=== PATIENT | female | born 1955 | race Caucasian/White ===

== ENCOUNTER 2025-03-02 20:24 | Inpatient (IN) | payer MEDICAID ==
[~2025-03-02] VITALS: Ht 170.2 cm; Wt 83.9 kg
[2025-03-02] MEDS ORDERED: VANCOMYCIN 1G PREMIX 200 ML IV ONE (21:00)
[2025-03-02] MEDS: PIPERACILLIN/TAZO 3.375G/50ML 50 ML IV ONE (21:11)
[2025-03-02] MEDS: SODIUM CHLORIDE 0.9% (SEPSIS BOLUS) IV ONE (21:11)
[2025-03-02] MEDS: ACETAMINOPHEN 325MG TABLET PO ONE (21:15)
[2025-03-02 21:31] LABS: HEMATOCRIT. 33.1 % (36.0-48.0); MEAN CORPUSCULAR HEMOGLOBIN 27.7 pg (28.0-32.0); MEAN CORPUSCULAR HGB CONC 33.2 g/dL (31.0-37.0); MEAN CORPUSCULAR VOLUME 83.4 fL (81.0-99.0); PLATELET 373 x1000/uL (130-400); RED BLOOD CELL COUNT 3.97 mill/uL (4.2-5.4); RED CELL DISTRIBUTION WIDTH 15.9 % (11.6-14.6); WHITE BLOOD COUNT 16.2 x1000/uL (4.5-11.0)
[2025-03-02 21:33] LABS: DIFFERENTIAL COMMENT 1
[2025-03-02 21:35] LABS: CHLORIDE 101 mEq/L (98-107); POTASSIUM 4.1 mEq/L (3.5-5.1); SODIUM 135 mEq/L (136-145)
[2025-03-02 21:36] LABS: CALCIUM 8.7 mg/dL (8.7-10.4); CARBON DIOXIDE 22 mEq/L (21-32)
[2025-03-02 21:37] LABS: PROTHROMBIN TIME 10.9 sec (9.6-11.0)
[2025-03-02 21:41] LABS: CREATININE 1.6 mg/dL (0.6-1.0); GLUCOSE 324 mg/dL (70-105); UREA NITROGEN BLOOD 39 mg/dL (9-23)
[2025-03-02 21:43] LABS: ALANINE AMINOTRANSFERASE 12 IU/L (10-49); ALBUMIN 4.1 g/dL (3.2-4.8); ASPARTATE AMINOTRANSFERASE 13 IU/L (<34); BILIRUBIN DIRECT 0.3 mg/dL (<=3.0); BILIRUBIN TOTAL 0.8 mg/dL (0.1-1.0); PROTEIN TOTAL 7.1 g/dL (6.0-8.3)
[2025-03-02 21:54] LABS: LACTIC ACID 3.2 mmol/L (0.4-2.0); TROPONIN I HIGH SENSITIVITY 86 ng/L (3.0-34)
[2025-03-02 21:57] LABS: PLATELET ESTIMATE NORMAL
[2025-03-02 23:58] VITALS: BP 86/35; PULSE 94; RESP 18; TEMP 36.1; O2SAT 98
[2025-03-02 23:58] LABS: CLARITY URINE CLEAR (CLEAR); COLOR URINE YELLOW (YELLOW); GLUCOSE URINE 3+ (NEGATIVE); KETONES URINE NEGATIVE (NEGATIVE); LEUKOCYTE ESTERASE URINE 2+ (NEGATIVE); NITRITE URINE NEGATIVE (NEGATIVE); OCCULT BLOOD URINE 2+ (NEGATIVE); PH URINE 5.5 (4.5-8.0); PROTEIN URINE 1+ (NEGATIVE); SPECIFIC GRAVITY URINE 1.023 (1.005-1.030); UROBILINOGEN URINE 0.2 E.U./dL (0.2-1.0)
[2025-03-03 00:32] LABS: SQUAMOUS EPITHELIAL CELL URINE 1+ /lpf (RARE/1+)
[2025-03-03 00:33] LABS: WBC URINE 50-100 /hpf (0-2)
[2025-03-03 00:34] LABS: BACTERIA URINE TRACE; YEAST URINE 1+
[2025-03-03] MEDS ORDERED: DEXTROSE 50% WATER 50ML SYRINGE IV PRN (01:15)
[2025-03-03] MEDS: SODIUM CHLORIDE 0.9% 1,000 ML IV SCH (01:30)
[2025-03-03 02:43] VITALS: BP 86/35; PULSE 94; RESP 18; TEMP 36.2
[2025-03-03] MEDS: PIPERACILLIN/TAZO 3.375G/50ML 50 ML IV SCH (06:39)
[2025-03-03] MEDS: BLOOD SUGAR DIAGNOSTIC STRIP TEST SCH (07:10)
[2025-03-03] MEDS: INSULIN LISPRO 100 UNITS/ML SUBCUT SCH (07:40)
[2025-03-03 08:00] VITALS: BP 101/50; PULSE 71; RESP 18; TEMP 36.5; O2SAT 93
[2025-03-03] MEDS: ENOXAPARIN 40MG/0.4ML SYR SUBCUT SCH (09:26)
[2025-03-03 12:00] VITALS: BP 96/47; PULSE 66; RESP 18; TEMP 36.5; O2SAT 97
[2025-03-03 16:00] VITALS: BP 109/46; PULSE 73; RESP 20; TEMP 36.4; O2SAT 96
[2025-03-03 17:13] LABS: BASOPHILS % 0.5 % (0.0-2.0); EOSINOPHILS % 1.4 % (0.0-5.0); HEMATOCRIT. 31.6 % (36.0-48.0); HEMOGLOBIN. 10.3 g/dL (12.0-16.0); LYMPHOCYTES % 9.7 % (20.0-50.0); MEAN CORPUSCULAR HEMOGLOBIN 27.4 pg (28.0-32.0); MEAN CORPUSCULAR HGB CONC 32.7 g/dL (31.0-37.0); MEAN CORPUSCULAR VOLUME 83.9 fL (81.0-99.0); MEAN PLATELET VOLUME 8.5 fl (7.4-10.4); MONOCYTES % 5.9 % (2.0-8.0); NEUTROPHILS % 82.5 % (40.0-76.0); PLATELET 356 x1000/uL (130-400); RED BLOOD CELL COUNT 3.77 mill/uL (4.2-5.4); RED CELL DISTRIBUTION WIDTH 16.2 % (11.6-14.6); WHITE BLOOD COUNT 16.1 x1000/uL (4.5-11.0)
[2025-03-03 17:21] LABS: POTASSIUM 4.2 mEq/L (3.5-5.1)
[2025-03-03 17:22] LABS: CALCIUM 8.7 mg/dL (8.7-10.4)
[2025-03-03 17:27] LABS: CREATININE 1.5 mg/dL (0.6-1.0)
[2025-03-03 20:00] VITALS: BP 107/49; PULSE 82; RESP 19; TEMP 36.9; O2SAT 96
[2025-03-03] MEDS: ATORVASTATIN CALCIUM 40MG TABLET PO SCH (22:16)
[2025-03-03] MEDS: INSULIN GLARGINE 100 UNITS/ML SUBCUT SCH (22:17)
[2025-03-03] MEDS: ACETAMINOPHEN 325MG TABLET PO PRN (23:05)
[2025-03-04] VITALS: BP 107/47; PULSE 73; RESP 18; TEMP 36.1; O2SAT 98
[2025-03-04 04:00] VITALS: BP 126/57; PULSE 72; RESP 18; TEMP 36.4; O2SAT 99
[2025-03-04 08:00] VITALS: BP 127/44; PULSE 70; RESP 18; TEMP 36.7; O2SAT 97
[2025-03-04] MEDS ORDERED: CEPH500C2 MT (11:49)
[2025-03-04 12:00] VITALS: BP 146/68; PULSE 74; RESP 18; TEMP 36.6; O2SAT 98
[2025-03-04 13:08] VITALS: BP 134/70; PULSE 85; TEMP 97.6; O2SAT 97
[2025-03-04 16:00] VITALS: BP 145/62; PULSE 79; RESP 18; TEMP 36.6; O2SAT 97
[2025-03-04 17:21] LABS: EOSINOPHILS % 3.1 % (0.0-5.0); HEMATOCRIT. 32.7 % (36.0-48.0); HEMOGLOBIN. 10.8 g/dL (12.0-16.0); LYMPHOCYTES % 15.6 % (20.0-50.0); MEAN CORPUSCULAR HEMOGLOBIN 27.7 pg (28.0-32.0); MEAN CORPUSCULAR HGB CONC 32.9 g/dL (31.0-37.0); MEAN CORPUSCULAR VOLUME 84.2 fL (81.0-99.0); MEAN PLATELET VOLUME 8.6 fl (7.4-10.4); NEUTROPHILS % 73.3 % (40.0-76.0); PLATELET 389 x1000/uL (130-400); RED BLOOD CELL COUNT 3.88 mill/uL (4.2-5.4); RED CELL DISTRIBUTION WIDTH 16.1 % (11.6-14.6); WHITE BLOOD COUNT 9.5 x1000/uL (4.5-11.0)
[2025-03-04 17:32] LABS: POTASSIUM 4.4 mEq/L (3.5-5.1)
[2025-03-04 17:33] LABS: CALCIUM 9.2 mg/dL (8.7-10.4)
[2025-03-04 17:37] LABS: CREATININE 1.2 mg/dL (0.6-1.0)
== END 2025-03-04 17:05 | disposition home or self-care (01) | DRG 720 ==
LOC: ER 20:24 → 8WST 22:17 → ENRESERV 22:33
PROVIDERS: ADMIT Internal Medicine; ATTEND Internal Medicine
DX: A41.9 Sepsis, unspecified organism (principal); N17.0 Acute kidney failure with tubular necrosis; I11.9 Hypertensive heart disease without heart failure; E11.65 Type 2 diabetes mellitus with hyperglycemia; D64.9 Anemia, unspecified; E78.00 Pure hypercholesterolemia, unspecified; N39.0 Urinary tract infection, site not specified
CPT/HCPCS: 36415; 71045; 74176; 80048; 80076; 81003; 82962; 83036; 83605; 83880; 84145; 84484; 85025; 93005; 96360; 99291; J1650; J1815; J2543; J7030

== ENCOUNTER 2025-03-31 13:00 | Inpatient (IN) | payer MEDICAID ==
[~2025-03-31] VITALS: Ht 157.5 cm; Wt 73.5 kg
[~2025-03-31 13:00] MED LIST: CEPH500C2 MT
[2025-03-31 13:47] LABS: EOSINOPHILS % 3.2 % (0.0-5.0); HEMATOCRIT. 33.9 % (36.0-48.0); HEMOGLOBIN. 11.4 g/dL (12.0-16.0); LYMPHOCYTES % 21.2 % (20.0-50.0); MEAN CORPUSCULAR HEMOGLOBIN 27.9 pg (28.0-32.0); MEAN CORPUSCULAR HGB CONC 33.5 g/dL (31.0-37.0); MEAN CORPUSCULAR VOLUME 83.1 fL (81.0-99.0); MEAN PLATELET VOLUME 7.5 fl (7.4-10.4); MONOCYTES % 6.2 % (2.0-8.0); NEUTROPHILS % 68.4 % (40.0-76.0); PLATELET 377 x1000/uL (130-400); RED BLOOD CELL COUNT 4.08 mill/uL (4.2-5.4); RED CELL DISTRIBUTION WIDTH 15.7 % (11.6-14.6); WHITE BLOOD COUNT 8.7 x1000/uL (4.5-11.0)
[2025-03-31] MEDS: SODIUM CHLORIDE 0.9% (SEPSIS BOLUS) IV ONE (13:55)
[2025-03-31 13:58] LABS: CHLORIDE 101 mEq/L (98-107); POTASSIUM 4.2 mEq/L (3.5-5.1); SODIUM 133 mEq/L (136-145)
[2025-03-31 13:59] LABS: CALCIUM 9.7 mg/dL (8.7-10.4); CARBON DIOXIDE 25 mEq/L (21-32)
[2025-03-31 14:01] LABS: PROTHROMBIN TIME 10.3 sec (9.6-11.0)
[2025-03-31 14:04] LABS: CREATININE 1.2 mg/dL (0.6-1.0); GLUCOSE 318 mg/dL (70-105); UREA NITROGEN BLOOD 23 mg/dL (9-23)
[2025-03-31 14:06] LABS: ALANINE AMINOTRANSFERASE 12 IU/L (10-49); ALBUMIN 4.3 g/dL (3.2-4.8); ASPARTATE AMINOTRANSFERASE 13 IU/L (<34); BILIRUBIN DIRECT 0.1 mg/dL (<=3.0); BILIRUBIN TOTAL 0.5 mg/dL (0.1-1.0); PROTEIN TOTAL 7.4 g/dL (6.0-8.3)
[2025-03-31] MEDS: MEROPENEM 1G/100ML 100 ML IV ONE (14:23)
[2025-03-31] MEDS ORDERED: ONDANSETRON HCL 4MG/2ML INJ IV PRN (16:30)
[2025-03-31] MEDS ORDERED: ACETAMINOPHEN 325MG TABLET PO PRN (16:30)
[2025-03-31] MEDS ORDERED: DEXTROSE 50% WATER 50ML SYRINGE IV PRN (16:30)
[2025-03-31] MEDS: BLOOD SUGAR DIAGNOSTIC STRIP TEST SCH (16:51)
[2025-03-31 16:55] VITALS: BP 132/56; PULSE 77; RESP 18; TEMP 37.2
[2025-03-31] MEDS: INSULIN LISPRO 100 UNITS/ML SUBCUT SCH (17:33)
[2025-03-31 19:28] LABS: CLARITY URINE CLEAR (CLEAR); COLOR URINE YELLOW (YELLOW); GLUCOSE URINE 3+ (NEGATIVE); KETONES URINE NEGATIVE (NEGATIVE); LEUKOCYTE ESTERASE URINE TRACE (NEGATIVE); NITRITE URINE NEGATIVE (NEGATIVE); OCCULT BLOOD URINE NEGATIVE (NEGATIVE); PH URINE 7.5 (4.5-8.0); PROTEIN URINE NEGATIVE (NEGATIVE); SPECIFIC GRAVITY URINE 1.011 (1.005-1.030); UROBILINOGEN URINE 0.2 E.U./dL (0.2-1.0)
[2025-03-31 20:00] VITALS: BP 111/44; PULSE 82; RESP 18; TEMP 36.6; O2SAT 97
[2025-03-31 20:12] LABS: BACTERIA URINE TRACE; RBC URINE 0-2 /hpf (0-2); SQUAMOUS EPITHELIAL CELL URINE FEW /lpf (RARE/1+); WBC URINE 0-2 /hpf (0-2)
[2025-03-31] MEDS: INSULIN GLARGINE 100 UNITS/ML SUBCUT SCH (21:58)
[2025-04-01] VITALS: BP 129/52; PULSE 73; RESP 18; TEMP 36.5; O2SAT 96
[2025-04-01] MEDS: MEROPENEM 1G/100ML 100 ML IV SCH (01:37)
[2025-04-01 04:00] VITALS: BP 135/73; PULSE 60; RESP 18; TEMP 36.1; O2SAT 98
[2025-04-01] MEDS ORDERED: LEVO250T74 MT (10:53)
[2025-04-01 12:00] VITALS: BP 127/50; PULSE 73; RESP 18; O2SAT 96
[2025-04-01 19:28] VITALS: BP 163/74; PULSE 73; TEMP 98.1; O2SAT 99
== END 2025-04-01 20:30 | disposition home or self-care (01) | DRG 463 ==
LOC: ER 13:00 → 6EST 14:53 → EDBEDREQ 14:54
PROVIDERS: ADMIT Internal Medicine; ATTEND Internal Medicine
DX: N39.0 Urinary tract infection, site not specified (principal); E11.22 Type 2 diabetes mellitus with diabetic chronic kidney disease; N81.4 Uterovaginal prolapse, unspecified; I12.9 Hypertensive chronic kidney disease with stage 1 through stage 4 chronic kidney disease, or unspecified chronic kidney disease; E78.00 Pure hypercholesterolemia, unspecified; N18.9 Chronic kidney disease, unspecified
CPT/HCPCS: 36415; 71045; 80048; 80076; 81003; 82962; 83605; 84145; 85025; 93005; 99291; J1815; J2185; J7030